=== PATIENT | female | born 1950 | race Caucasian/White ===

== ENCOUNTER 2019-01-21 10:31 | Emergency (ER) | payer OTHER ==
[2019-01-21] MEDS ORDERED: IBUPROFEN 400 MG TAB ONE (11:33)
[2019-01-21] MEDS ORDERED: IBUPROFEN 200 MG TAB PO ONE (11:33)
[2019-01-21] MEDS ORDERED: CYCLOBENZAPRINE 10 MG TAB ONE (11:33)
[2019-01-21 11:59] LABS: Absolute Lymphocytes (CBC) 1.9 K/uL (0.7-4.9); Basophils % 0.5 % (0-1.3); Hematocrit 35.9 % (36.0-45.0); MPV 9.2 fL (7.6-11.3); RBC Red Blood Cell Count 3.73 M/uL (3.86-4.86)
[2019-01-21 12:17] LABS: Albumin 3.6 g/dL (3.4-5.0); Bilirubin Direct 0.2 mg/dL (0-0.2); Bilirubin Total 0.7 mg/dL (0.2-1.0); Potassium 3.6 mmol/L (3.5-5.1); Protein, Total 7.7 g/dL (6.4-8.2)
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
[2019-01-21 14:26] VITALS: TEMP 98
[2019-01-21 14:29] VITALS: BP 134/79; O2SAT 95
--- NOTE | 2019-01-21 16:18 | EKG ---
Test Date: 2019-01-21 Test Time: 10:33:53 Third Mate: PAIGE MEASUREMENT RESULTS: Intervals: Rate: 105 TN: 168 QRSD: 80 QT: 346 QTc: 457 [place]: P: -13 TN: 168 QRS: -38 T: 18 INTERPRETIVE STATEMENTS: Sinus tachycardia Left axis deviation Abnormal ECG Compared to ECG 10/08/2014 10:46:06 Left-axis deviation now present Sinus rhythm no longer present Electronically Signed On 01-21-19 16:17:39 GLASS FRAME FITTER by Dhiraj Bailon
[2019-01-21 18:01] LABS: Urine Blood NEGATIVE (NEG); Urine Glucose NEGATIVE (NEG); Urine Protein NEGATIVE (NEG)
== END 2019-01-21 14:18 | disposition home or self-care (01) ==
LOC: ER 10:31
DX: S16.1XXA Strain of muscle, fascia and tendon at neck level, initial encounter (principal); V49.40XA Driver injured in collision with unspecified motor vehicles in traffic accident, initial encounter; I10 Essential (primary) hypertension; E78.5 Hyperlipidemia, unspecified; E03.9 Hypothyroidism, unspecified; Z88.0 Allergy status to penicillin; Z88.5 Allergy status to narcotic agent
CPT/HCPCS: 93005; 85025; 80048; 36415; 80076; 81003; 83690; 72125; 74177; 99285; Q9967